=== PATIENT | male | born 1965 | race Caucasian/White ===

== ENCOUNTER → 2016-04-10 | Outpatient (CLI) | payer OTHER ==
--- NOTE | 2016-04-10 12:46 | Diagnostic Imaging Report ---
PROCEDURE: CT abdomen and pelvis without contrast. TECHNIQUE: Multiple contiguous axial images were obtained through the abdomen and pelvis without the use of intravenous contrast. INDICATION: Microhematuria. FINDINGS: The heart size is normal. The lung bases are clear. The liver is normal in size without focal lesions. The gallbladder is unremarkable. There is no biliary ductal dilatation. The spleen is normal. The pancreas is unremarkable. The adrenal glands are unremarkable. The kidneys are normal. There is no evidence of nephrolithiasis or obstructive uropathy. The appendix is normal. The aorta is nonaneurysmal. The bowel gas pattern is nonspecific. There is no free air. There is mild diverticular disease without evidence of diverticulitis. There is no pelvic mass, adenopathy or free fluid. There are minimal degenerative changes in the spine. IMPRESSION: 1. Diverticular disease without evidence of diverticulitis. 2. No evidence of nephrolithiasis or obstructive uropathy. Dictated by: Dictated on workstation # [id number]
== END ==
LOC: RAD 12:15
PROVIDERS: ATTEND Urology
DX: R31.29 Other microscopic hematuria (principal)
CPT/HCPCS: 74176

== ENCOUNTER → 2016-04-27 | Outpatient (CLI) | payer OTHER ==
[~2016-04-27] VITALS: Ht 180.3 cm; Wt 90.7 kg
[~2016-04-27] MED LIST: DIATRIZOATE 30% 300 ML (CYSTOGRAFIN) VIAL UR ONE; LIDOCAINE JELLY 2% (XYLOCAINE) 5 ML TUBE TOP ONE
[2016-04-27 09:35] VITALS: BP 138/98
[2016-04-27 10:04] VITALS: BP 130/86
--- NOTE | 2016-04-27 17:25 | Diagnostic Imaging Report ---
Fluoroscopy time: 53 seconds Retrograde urethrocystogram. INDICATION: Urethral stricture. By history, the patient has a known urethral stricture. There are no previous exams available for comparison. Contrast was injected into the penile urethra. There does appear to be a focal stricture of the urethra just distal to the bulbous urethra. No other abnormalities identified. IMPRESSION: 1. There is a focal stricture of the penile urethra just distal to the bulbous urethra. 2. These results were discussed with Dr. Hale. Dictated by: Dictated on workstation # [id number]
== END ==
LOC: RAD 09:21
PROVIDERS: ATTEND Urology
DX: N35.9 Urethral stricture, unspecified (principal)
CPT/HCPCS: 74450

== ENCOUNTER → 2019-08-05 | Outpatient (CLI) | payer OTHER ==
--- NOTE | 2019-08-05 11:00 | Diagnostic Imaging Report ---
PROCEDURE: MRI left upper extremity without contrast. TECHNIQUE: Multiplanar, multisequence non contrast-enhanced MRI of the left upper extremity was accomplished. INDICATION: Left shoulder pain. COMPARISON: None FINDINGS: No acute fracture or dislocation is seen in the left shoulder. Alignment appears normal. Small subcortical cystlike changes are noted in the humeral head. No joint effusion is seen. There are moderate degenerative changes in the acromioclavicular joint. There is a small full-thickness tear in the anterior supraspinatus tendon measuring 8 mm, with additional high-grade partial-thickness tearing and moderate tendinosis in the supraspinatus. The infraspinatus tendon appears intact. The teres minor tendon is intact. There is mild tendinosis and low-grade partial-thickness tearing in the subscapularis tendon. There is no focal muscular atrophy. The long head of the biceps tendon is normal in course and signal. The glenoid labrum is suboptimally evaluated without intra-articular contrast but there does appear to be some degeneration of the labrum. No para labral cyst is seen. The acromion has a curved undersurface without hooking. The coracoclavicular and coracoacromial ligaments appear intact. The soft tissues about the left shoulder demonstrate no acute abnormality. IMPRESSION: 1. Small full-thickness tear with additional high-grade partial-thickness tearing and tendinosis in the left rotator cuff. No muscular atrophy is seen. 2. Moderate degenerative changes in the acromioclavicular joint. Dictated by: Dictated on workstation # [id number]
--- NOTE | 2019-08-05 11:34 | Diagnostic Imaging Report ---
EXAMINATION: Magnetic resonance imaging of the right shoulder without contrast. DATE: August 05, 2019. COMPARISON: None. HISTORY: 54-year-old male, bilateral shoulder pain. TECHNIQUE: Magnetic Resonance Imaging sequences were performed of the shoulder without contrast. FINDINGS: ROTATOR CUFF, LIGAMENTS, TENDONS, AND MUSCLES: The supraspinatus, infraspinatus, teres minor, and subscapularis tendons and muscles are intact. At the very upper and posterior aspect of the supraspinatus muscle, there is a small ganglion cyst measuring 7 x 3 x 8 mm in size. There is normal rotator cuff muscle bulk. There is very low level edema in the teres minor muscle. LONG HEAD OF BICEPS: The biceps labral attachment and long head of the biceps tendon are intact. The long head of the biceps tendon is normally positioned within the bicipital groove. GLENOHUMERAL JOINT: The humeral head is well positioned relative to the glenoid. The labrum is grossly intact. There is no identified paralabral cyst. The articular cartilage is grossly intact. There is no joint effusion. ACROMIOCLAVICULAR JOINT: The acromioclavicular joint is normally aligned. The coracoclavicular and coracoacromial ligaments are intact. There are mild acromioclavicular degenerative changes without undersurface osteophyte. BONE: There is no os acromiale. There is no identified Hill-Sachs deformity. There is no acute fracture, bone contusion, or evidence of osteonecrosis. BURSAE AND SOFT TISSUES: There is no abnormal fluid in the subacromial/subdeltoid bursa. There is a ganglion cyst adjacent to the posterior and superior margin of the supraspinatus as mentioned above. IMPRESSION: 1. Intact rotator cuff tendons and proximal long head of biceps tendon. 2. Low level edema in the teres minor muscle which potentially may relate to a low-grade muscle strain or early denervation related signal changes. No fatty muscle atrophy. 3. Small ganglion cyst adjacent to the posterior and superior aspect of the supraspinatus muscle measuring 7 x 3 x 8 mm in size. 4. Mild acromioclavicular degenerative changes without undersurface osteophyte. 5. Grossly intact labrum and unremarkable additional glenohumeral joint assessment. 6. No acute fracture, bone contusion, or evidence of osteonecrosis. Dictated by: Dictated on workstation # [id number]
== END ==
LOC: RAD 09:27
PROVIDERS: ATTEND Orthopaedic Surgery
DX: M75.111 Incomplete rotator cuff tear or rupture of right shoulder, not specified as traumatic (principal); M75.112 Incomplete rotator cuff tear or rupture of left shoulder, not specified as traumatic; M19.011 Primary osteoarthritis, right shoulder; M19.012 Primary osteoarthritis, left shoulder; M67.411 Ganglion, right shoulder
CPT/HCPCS: 73221